=== PATIENT | female | born 1960 | race Caucasian/White ===

== ENCOUNTER → 2021-02-17 | Outpatient (CLI) | payer OTHER ==
--- NOTE | 2021-02-17 14:27 | Diagnostic Imaging Report ---
INDICATION: Fall. Elbow pain. COMPARISON: None FINDINGS: Multiple radiographic views of the left elbow were obtained. There is no acute fracture or dislocation. Osseous structures are intact. Joint spaces are maintained. There is no unexpected radiopaque foreign body. Note is made of significant asymmetric prominence of the posterior soft tissues over the olecranon. IMPRESSION: 1. No acute fracture or dislocation of the left elbow. 2. Possible olecranon bursitis. Clinical correlation is recommended. Dictated by: Dictated on workstation # [id number]
== END ==
LOC: RAD FS 13:49
PROVIDERS: ATTEND Nurse Practitioner
DX: M25.522 Pain in left elbow (principal); W19.XXXA Unspecified fall, initial encounter
CPT/HCPCS: 73080

== ENCOUNTER → 2021-08-23 | Outpatient (CLI) | payer OTHER ==
--- NOTE | 2021-08-23 08:35 | Diagnostic Imaging Report ---
Clinical indication: Patient with memory issues and weakness in legs and tingling in arms and hands. Exam: MRI of the brain performed without IV contrast. Sequences include axial DWI, ADC map, axial gradient echo, axial T2, axial FLAIR, sagittal FLAIR, axial T1, and sagittal T1. Comparison: None. Findings: There is no evidence of acute cerebral infarct, intracranial hemorrhage, or gross mass effect. The brain parenchymal volume appears appropriate for patient's age. There are multiple focal and patchy areas of high T2 signal white matter changes involving both cerebral hemispheres. There are small areas seen in the periventricular regions bilaterally. There is normal thompson-white matter distinction. There is no significant midline shift or herniation. [place] vascular structures show no gross abnormality as visualized. There is no evidence of hydrocephalus. The basal cisterns are unremarkable. The skull, extracranial soft tissue, and orbits are unremarkable. There is mild mucosal thickening involving the left maxillary sinus and minimal mucosal thickening involving the right maxillary sinus, frontal sinus, ethmoid sinus, sphenoid sinus. Temporal bones show no significant abnormality. IMPRESSION: 1: There is no evidence of acute intracranial process. 2: There are multiple focal and patchy areas of high T2 signal white matter changes involving both cerebral hemispheres. These findings are suspected to be related to chronic small vessel ischemic disease. Clinical correlation would better evaluate if there is concern for a demyelinating process, which is not specifically suspected on this exam. If the patient has history of demyelinating process, then comparison to prior imaging would better evaluate. 3: Mild paranasal sinus disease. Dictated by: Dictated on workstation # [id number]
== END ==
LOC: RAD 07:15
PROVIDERS: ATTEND Family Medicine
DX: J32.9 Chronic sinusitis, unspecified (principal); R41.3 Other amnesia; R90.82 White matter disease, unspecified
CPT/HCPCS: 70551